=== PATIENT | female | born 1950 | race Caucasian/White ===

== ENCOUNTER → 2019-06-14 14:38 | Outpatient (ROUT) | payer MEDICARE, OTHER, SELFPAY ==
[2019-06-14 15:35] LABS: TSH w/ Reflex to FT4 2.68 uIU/mL (0.47-4.68)
[2019-06-14 18:27] LABS: BUN Creatinine Ratio 18.9 (6-22); Blood Urea Nitrogen 17 mg/dL (7-17); Calcium 9.9 mg/dL (8.4-10.2); Carbon Dioxide 29 mmol/L (22-32); Chloride 104 mmol/L (98-107); Cholesterol 283 mg/dL (140-199); Estimated Glomerular Filt Rate > 60.0 mL/min (>60); Glucose 104 mg/dL (80-110); HDL Cholesterol 65 mg/dL (40-60); HEMOLYSIS < 15 (0-50); LDL Cholesterol Calculated 197 mg/dL (<100); Potassium 4.3 mmol/L (3.4-5.1); Sodium 141 mmol/L (137-145); Triglycerides 105 mg/dL (35-150)
== END ==
PROVIDERS: Visit Provider Internal Medicine
DX: R73.01 Impaired fasting glucose (principal); E78.5 Hyperlipidemia, unspecified; E03.9 Hypothyroidism, unspecified
CPT/HCPCS: 80048; 80061; 84443

== ENCOUNTER 2019-10-15 12:52 | Emergency (ER) | payer MEDICARE, OTHER, SELFPAY ==
[2019-10-15 13:04] VITALS: BP 166/71; PULSE 80; RESP 16; TEMP 36.3; O2SAT 96; BMI 54.6
[2019-10-15 14:52] VITALS: BP 127/68; PULSE 85; RESP 16; TEMP 36.8; O2SAT 99
--- NOTE | 2019-10-15 18:13 | ED_ITS ---
HPI - Extremity Injury (Lower) <CARMEN Renee - Last Filed: 10/15/19 18:20> General Chief Complaint: Extremity Injury, Lower Stated Complaint: Laceration On Top Of Right Foot Time Seen by Provider: 10/15/19 13:03 Source: patient Mode of arrival: Ambulatory Limitations: no limitations History of Present Illness HPI Narrative: The patient is a 69-year-old female nonsmoker history of obesity and hypothyroid who presents with a chief complaint of a laceration on top of her right foot. She states that her tetanus is up-to-date, given in 2018. She x-ray lightheaded it on a piece of glass that was stuck on the bottom of her other foot. She states she has full range of motion. She states that she wanted to ?butterfly it at home.However she did not have enough supplies in her medical kit. Related Data Home Medications Medication Instructions Recorded Confirmed baclofen 20 mg tablet 20 mg PO BID 06/28/18 12/27/18 celecoxib 200 mg capsule 200 mg PO DAILY PRN 06/28/18 12/27/18 cyclosporine 0.05 % eye drops in a EYE-BOTH BID each 06/28/18 12/27/18 dropperette duloxetine 60 mg capsule,delayed 60 mg PO DAILY 06/28/18 12/27/18 release gabapentin 100 mg capsule 100 mg PO DAILY cap 06/28/18 12/27/18 levothyroxine 50 mcg tablet 50 mcg PO DAILY 06/28/18 12/27/18 omega-3 fatty acids 1,000 mg 1,000 mg PO BID cap 06/28/18 12/27/18 capsule omeprazole 20 mg capsule,delayed 20 mg PO DAILY 06/28/18 12/27/18 release Resmed Airsense 10 CPAP #1 ea 12/27/18 12/27/18 Allergies Allergy/AdvReac Type Severity Reaction Status Date / Time adhesive tape Allergy Blisters Verified 12/27/18 08:55 and Rash nickel Allergy Rash Verified 12/27/18 08:55 mercury (elemental) AdvReac Eye Redness Verified 12/27/18 08:55 Review of Systems <ACRMEN Renee - Last Filed: 10/15/19 18:20> Review of Systems Narrative: GENERAL: Denies chills, fatigue, malaise, fever, sweats. HEENT: Denies sinus pain, ear pain, sore throat, difficulty swallowing, dizziness. RESPIRATORY: Denies dyspnea, cough, wheezing, hemoptysis, sputum. CARDIOVASCULAR: Denies chest pain, palpitations, orthopnea, edema, GASTROINTESTINAL: Denies nausea, vomiting, abdominal pain, diarrhea, constipation, melena. : Denies dysuria, frequency, incontinence, hematuria, urinary retention. MUSCULOSKELETAL: denies weakness, joint pain, or bony pain SKIN: See HPI NEUROLOGIC: Denies weakness, headache, numbness, change in speech, confusion, seizures, incoordination. PSYCHIATRIC: No concerning psychosocial issues. 12 point review of systems is negative except for those stated above Patient History <CARMEN Renee - Last Filed: 10/15/19 18:20> Medical History Chronic lower back pain (Chronic) Dry eye syndrome (Chronic) Hypothyroidism (Chronic) Neuropathy (Chronic) Obesity (BMI 30-39.9) (Chronic) Obstructive sleep apnea (Chronic) Tendonitis (Chronic) Trigeminal neuralgia (Chronic) Family History Sister Psoriatic arthritis Sister Tendonitis Social History Smoking Status: Never smoker Smoking Status: Never smoker alcohol intake frequency: 0-2 drinks per day Exam <CARMEN Renee - Last Filed: 10/15/19 18:20> Narrative Exam Narrative: GENERAL: This is a well-nourished, well-developed patient, in no acute distress HEAD: Atraumatic. Normocephalic. No temporal or scalp tenderness. EYES: Pupils equal round and reactive. Extraocular motions intact. No scleral icterus. No injection or drainage. ENT: Nose without bleeding, purulent drainage or septal hematoma. Airway patent. NECK: Trachea midline. No JVD or lymphadenopathy. Supple, nontender, no meni ngeal signs. CARDIOVASCULAR: Regular rate and rhythm RESPIRATORY: No cough. No increased respiratory effort. No accessory muscle EXTREMITIES: Skin exam as noted. Positive pedal pulses right foot. Capillary refill less than 2 seconds all toes right foot BACK: Nontender without deformity or crepitance. No flank tenderness. NEURO: AOx3. SKIN: 1 cm flap laceration noted on top of right foot over navicular. Through dermis, no obvious muscle or tendon involvement. Slowly Oozing blood. Initial Vital Signs Initial Vital Signs: Vital Signs Temperature 97.3 F L 10/15/19 13:04 Pulse Rate 80 10/15/19 13:04 Respiratory Rate 16 10/15/19 13:04 Blood Pressure 166/71 H 10/15/19 13:04 Pulse Oximetry 96 10/15/19 13:04 <Jose Cruz Leos MD - Last Filed: 10/16/19 19:45> Initial Vital Signs Initial Vital Signs: Vital Signs Temperature 97.3 F L 10/15/19 13:04 Pulse Rate 80 10/15/19 13:04 Respiratory Rate 16 10/15/19 13:04 Blood Pressure 166/71 H 10/15/19 13:04 Pulse Oximetry 96 10/15/19 13:04 Procedures <CARMEN Renee - Last Filed: 10/15/19 18:20> Laceration Repair Laceration 1: Site: lower extremity Side (If applicable): right Size (cm): 1.5 Description: flap Pre-repair: wound explored, irrigated extensively (Soaked in Hibiclens and water) and deep structures intact Skin layer closed with: steri-strips Course <CARMEN Renee - Last Filed: 10/15/19 18:20> Vital Signs Vital signs: Vital Signs - 8 hr 10/15/19 13:04 10/15/19 14:52 Temperature 97.3 F L 98.2 F Pulse Rate 80 85 Respiratory Rate 16 16 Blood Pressure 166/71 H 127/68 Pulse Oximetry 96 99 <Jose Cruz Leos MD - Last Filed: 10/16/19 19:45> Vital Signs Vital signs: Vital Signs - 8 hr 10/15/19 13:04 10/15/19 14:52 Temperature 97.3 F L 98.2 F Pulse Rate 80 85 Respiratory Rate 16 16 Blood Pressure 166/71 H 127/68 Pulse Oximetry 96 99 MDM - Extremity Injury (Lower) <CARMEN Renee - Last Filed: 10/15/19 18:20> MDM Narrative Medical decision making narrative: The patient is a 69-year-old female who presents with a chief complaint of a laceration. Her tetanus is up-to-date. Patient declines x-ray. Her wound was closed as per procedural note tolerated well. She was re-evaluated after Steri-Strips for bleeding, and she was hemodynamically stable. I did discuss at length with the patient that seizures with lead 20 improved cosmetic closure over Steri-Strips, but she elected to do Steri-Strips instead. I discussed at length monitoring for signs and symptoms of infection. Patient has no questions or concerns upon discharge and states understanding of return precautions as well as follow-up care. Discharge Plan Departure Patient Disposition: Home Clinical Impression: Laceration Discharge Date/Time: 10/15/19 14:53 Instructions: DI for Laceration Repair Steri-Strips Activity Restrictions/Additional Instructions: Thank you for trusting us with your care today Please monitor your wound for signs and symptoms of infection including extending redness, purulent drainage etcetera Please follow-up with primary care provider in the next few days. Please come back to emergency department for any acute Prescriptions: No Action celecoxib [Celebrex] 200 mg capsule 200 mg PO DAILY PRNRF: 0 omega-3 fatty acids [Fish Oil Concentrate] 1,000 mg capsule 1,000 mg PO BID RF: 0 baclofen 20 mg tablet 20 mg PO BID RF: 0 levothyroxine [Levoxyl] 50 mcg tablet 50 mcg PO DAILY RF: 0 omeprazole 20 mg capsule,delayed release(DR/EC) 20 mg PO DAILY RF: 0 gabapentin 100 mg capsule 100 mg PO DAILY RF: 0 Restasis 0.05 % dropperette EYE-BOTH BID RF: 0 duloxetine 60 mg capsule,delayed release(DR/EC) 60 mg PO DAILY RF: 0 (DME) Resmed Airsense 10 CPAP Qty: 1 RF: 0 Referrals: Dorothy Harvey MD [Primary Care Provider] -
== END 2019-10-15 14:53 | disposition home or self-care (01) ==
PROVIDERS: Emergency Provider Nurse Practitioner Family; PCP Internal Medicine
DX: S91.311A Laceration without foreign body, right foot, initial encounter (principal); W25.XXXA Contact with sharp glass, initial encounter; E66.9 Obesity, unspecified; E03.9 Hypothyroidism, unspecified
CPT/HCPCS: 99281

== ENCOUNTER → 2020-04-19 15:20 | Outpatient (CLI) | payer MEDICARE, OTHER, SELFPAY ==
[2020-04-19 16:17] LABS: Add Manual Diff / Slide Review NO; Basophils Absolute Auto 0 /uL (0-100); Basophils Percent Auto 0.6 % (0-2); Eosinophils Absolute Auto 100 /uL (0-450); Hematocrit 37.3 % (36-46); Hemoglobin 12.6 g/dL (12.0-16.0); Lymphocytes Absolute Auto 2100 /uL (1100-4500); Lymphocytes Percent Auto 28.5 % (25-40); Mean Corpuscular HGB Conc 33.8 % (30-36); Mean Corpuscular Hemoglobin 31.3 PG (26-34); Mean Corpuscular Volume 92.8 fL (80-100); Monocytes Absolute Auto 500 /uL (0-900); Monocytes Percent Auto 6.5 % (3-14); Neutrophils Absolute Auto 4500 /uL (1500-7000); Neutrophils Percent Auto 62.4 % (50-75); Platelet Count 276 X10^3/uL (150-400); Red Blood Cell Count 4.02 X10^6/uL (4.0-5.2); Red Cell Distribution Width 14.2 % (11.6-14.8); White Blood Cell Count 7.2 X10^3/uL (4.5-11.0)
[2020-04-19 16:39] LABS: Alanine Aminotransferase 41 IU/L (<35); Albumin 4.2 g/dL (3.5-5.0); Albumin Globulin Ratio 1.4 (1.0-2.8); Alkaline Phosphatase 101 U/L (38-126); Aspartate Aminotransferase 49 IU/L (14-36); BUN Creatinine Ratio 20.9 (6-22); Bilirubin Total 0.6 mg/dL (0.2-1.3); Blood Urea Nitrogen 19 mg/dL (7-17); Calcium 9.5 mg/dL (8.4-10.2); Carbon Dioxide 30 mmol/L (22-32); Chloride 104 mmol/L (98-107); Cholesterol 263 mg/dL (140-199); Estimated Glomerular Filt Rate > 60.0 mL/min (>60); Globulin 3.1 g/dL (1.7-4.1); Glucose 98 mg/dL (80-110); HDL Cholesterol 71 mg/dL (40-60); HEMOLYSIS < 15 (0-50); LDL Cholesterol Calculated 177 mg/dL (<100); Sodium 137 mmol/L (137-145); Total Protein 7.3 g/dL (6.3-8.2); Triglycerides 74 mg/dL (35-150)
[2020-04-19 16:49] LABS: Hemoglobin A1C% w Est Avg Glu 5.4 % (4.0-6.0)
[2020-04-19 16:53] LABS: Free T3, Triiodothyronine Free 3.58 pg/mL (2.77-5.27); Free T4, Direct Thyroxine 1.38 ng/dL (0.78-2.19)
[2020-04-19 17:07] LABS: Thyroid Stimulating Hormone 0.968 uIU/mL (0.47-4.68)
[2020-04-19 17:28] LABS: Vitamin B12 751 pg/mL (239-931)
== END ==
PROVIDERS: PCP Family Medicine; Referring Provider Family Medicine; Visit Provider Family Medicine
DX: E03.9 Hypothyroidism, unspecified (principal); G62.89 Other specified polyneuropathies; E78.5 Hyperlipidemia, unspecified
CPT/HCPCS: 36415; 80053; 80061; 82607; 83036; 84439; 84443; 84481; 85025

== ENCOUNTER → 2020-11-22 10:30 | Outpatient (CLI) | payer MEDICARE, OTHER, SELFPAY ==
--- NOTE | 2020-11-22 10:32 | DI.RAD.S_ITS ---
PROCEDURE: XR HIP W PEL IF DONE RT 2V INDICATIONS: right hip pain after fall TECHNIQUE: AP pelvis with lateral view(s) of the right hip(s). COMPARISON: None. FINDINGS: Bones: No fractures or dislocations. Pelvic ring appears intact. No suspicious bony lesions. Soft tissues: The visualized bowel gas pattern is normal. No suspicious soft tissue calcifications. IMPRESSION: No fracture. No osseous lesion. If symptoms and/or clinical suspicion for pathology persists, further assessment with repeat radiographs (7-10 days) or advanced imaging (e.g. CT, MRI or bone scan) should be considered. Dictated by: Silvia Tate MD, PhD on 11/22/2020 at 16:59 Approved by: Silvia Tate MD, PhD on 11/22/2020 at 17:00
== END ==
PROVIDERS: PCP Family Medicine; Referring Provider Family Medicine; Visit Provider Family Medicine
DX: M25.551 Pain in right hip (principal)
CPT/HCPCS: 73502

== ENCOUNTER → 2021-06-17 08:22 | Outpatient (CLI) | payer MEDICARE, OTHER, SELFPAY ==
[2021-06-17 10:51] LABS: Add Manual Diff / Slide Review NO; Basophils Absolute Auto 100 /uL (0-100); Basophils Percent Auto 0.7 % (0-2); Eosinophils Absolute Auto 200 /uL (0-450); Eosinophils Percent Auto 2.8 % (2-4); Hematocrit 38.6 % (36-46); Lymphocytes Absolute Auto 2900 /uL (1100-4500); Lymphocytes Percent Auto 37.9 % (25-40); Mean Corpuscular HGB Conc 33.6 % (30-36); Mean Corpuscular Hemoglobin 30.9 PG (26-34); Mean Corpuscular Volume 91.9 fL (80-100); Monocytes Absolute Auto 500 /uL (0-900); Monocytes Percent Auto 6.5 % (3-14); Neutrophils Absolute Auto 4000 /uL (1500-7000); Neutrophils Percent Auto 52.1 % (50-75); Platelet Count 311 X10^3/uL (150-400); Red Cell Distribution Width 14.2 % (11.6-14.8); White Blood Cell Count 7.6 X10^3/uL (4.5-11.0)
[2021-06-17 11:04] LABS: Alanine Aminotransferase 30 IU/L (<35); Albumin 4.2 g/dL (3.5-5.0); Albumin Globulin Ratio 1.2 (1.0-2.8); Alkaline Phosphatase 87 U/L (38-126); Aspartate Aminotransferase 40 IU/L (14-36); BUN Creatinine Ratio 18.7 (6-22); Bilirubin Total 0.6 mg/dL (0.2-1.3); Blood Urea Nitrogen 17 mg/dL (7-17); Calcium 9.5 mg/dL (8.4-10.2); Carbon Dioxide 30 mmol/L (22-32); Chloride 108 mmol/L (98-107); Cholesterol 264 mg/dL (140-199); Estimated Glomerular Filt Rate > 60.0 mL/min (>60); Globulin 3.4 g/dL (1.7-4.1); Glucose 100 mg/dL (80-110); HDL Cholesterol 67 mg/dL (40-60); HEMOLYSIS < 15 (0-50); LDL Cholesterol Calculated 181 mg/dL (<100); Potassium 3.6 mmol/L (3.4-5.1); Sodium 141 mmol/L (137-145); Total Protein 7.6 g/dL (6.3-8.2); Triglycerides 81 mg/dL (35-150)
[2021-06-17 11:42] LABS: Free T3, Triiodothyronine Free 3.35 pg/mL (2.77-5.27); Free T4, Direct Thyroxine 1.46 ng/dL (0.78-2.19)
[2021-06-17 11:55] LABS: Thyroid Stimulating Hormone 2.17 uIU/mL (0.47-4.68)
== END ==
PROVIDERS: PCP Family Medicine; Referring Provider Family Medicine; Visit Provider Family Medicine
DX: E03.9 Hypothyroidism, unspecified (principal); E78.5 Hyperlipidemia, unspecified
CPT/HCPCS: 36415; 80053; 80061; 84439; 84443; 84481; 85025

== ENCOUNTER 2021-11-07 20:39 | Emergency (ER) | payer MEDICARE, OTHER, SELFPAY ==
[2021-11-07 20:57] VITALS: BP 133/60; PULSE 156; RESP 18; TEMP 37; O2SAT 96; BMI 42.4
--- NOTE | 2021-11-07 20:57 | DI.RAD.S_ITS ---
PROCEDURE: XR CHEST 1V INDICATIONS: chest pain TECHNIQUE: One view of the chest was acquired. COMPARISON: None. FINDINGS: Surgical changes and devices: None. Lungs and pleura: Lungs are clear. No pleural effusions or pneumothorax. Mediastinum: Mediastinal contours appear normal. Heart size is normal. Bones and chest wall: No suspicious bony lesions. Overlying soft tissues appear unremarkable. IMPRESSION: No acute cardiopulmonary process demonstrated radiographically. Dictated by: Harlan Lara M.D. on 11/07/2021 at 21:17 Approved by: Harlan Lara M.D. on 11/07/2021 at 21:17
--- NOTE | 2021-11-07 21:10 | PC.NURSE ---
pt was sitting on couch when she started feeling palpitations realized she was in Afib after checking her pulse and came to the ED. pt was placed on a stretcher in [place] and an ekg done, then she was moved to a room and placed on the monitor by which time she had converted to SR
--- NOTE | 2021-11-07 21:32 | ED.ARRPALP ---
HPI - Arrhythmia/Palpitations General Chief Complaint: Arrhythmia/Palpitations Stated Complaint: IRREGULAR HEART RATE. SHORT OF BREATH Time Seen by Provider: 11/07/21 21:12 Mode of arrival: Family Vehicle History of Present Illness HPI narrative: 71-year-old female nonsmoker without significant medical history presents with a chief complaint of a sudden onset rapid and irregular heart rate that started at 8:00 p.m. tonight. It is given her the sensation of palpitations and shortness of breath but she denies any chest pain, dizziness or lightheadedness. She is a former ER nurse, she states that she is never had AFib in the past. She denies any recent medication or dietary change. She is had no runny nose, sore throat or cough. She denies any fever or chills. She denies abdominal pain, diarrhea or constipation and has no dysuria, frequency or urgency. Related Data Home Medications Medication Instructions Recorded Confirmed Resmed Airsense 10 CPAP #1 ea 12/27/18 06/27/21 Devil's claw PO PRN 04/19/20 06/27/21 black elderberry PO BID 04/19/20 06/27/21 calcium carbonate 600 mg-vitamin cap PO . BID 04/19/20 06/27/21 D3 12.5 mcg (500 unit) capsule (Calcium 600 with Vitamin D3) cetirizine 10 mg capsule (Zyrtec) mg PO PRN 04/19/20 06/27/21 cholecalciferol (vitamin D3) 50 50 mcg PO BID 04/19/20 06/27/21 mcg (2,000 unit) capsule multivitamin with minerals 1 tab PO DAILY 04/19/20 06/27/21 (Hair,Skin and Nails tablet) fmarqykubole-Xj-gnjx-minerals 27 tab PO 04/19/20 06/27/21 mg-0.4 mg tablet (One Daily Women's) Previous Rx's Medication Instructions Recorded omeprazole 20 mg capsule,delayed See Rx Instructions .Route 09/02/20 release .COMPLEX #90 caps celecoxib 200 mg capsule See Rx Instructions .Route 04/25/21 .COMPLEX #90 caps duloxetine 60 mg capsule,delayed See Rx Instructions .Route 05/05/21 release .COMPLEX #90 caps oxcarbazepine 300 mg tablet See Rx Instructions PO BID #90 tabs 07/03/21 baclofen 20 mg tablet See Rx Instructions .Route 07/09/21 .COMPLEX #180 tabs levothyroxine 50 mcg tablet See Rx Instructions .Route 07/09/21 .COMPLEX #90 tabs cyclosporine 0.05 % eye drops in a 1 drp EYE-BOTH BID #180 ea 07/11/21 dropperette (Restasis) gabapentin 300 mg capsule 300 mg PO TID #360 caps 07/15/21 Allergies Allergy/AdvReac Type Severity Reaction Status Date / Time adhesive tape Allergy Blisters Verified 11/07/21 21:00 and Rash nickel Allergy Rash Verified 11/07/21 21:00 mercury (elemental) AdvReac Eye Redness Verified 11/07/21 21:00 Review of Systems Review of Systems Narrative: GENERAL: Denies chills, fatigue, malaise, fever, sweats. HEENT: Denies sinus pain, ear pain, sore throat, difficulty swallowing, dizziness. RESPIRATORY: Denies dyspnea, cough, wheezing, hemoptysis, sputum. CARDIOVASCULAR: Denies chest pain, palpitations, orthopnea, edema, GASTROINTESTINAL: Denies nausea, vomiting, abdominal pain, diarrhea, constipation, melena. : Denies dysuria, frequency, incontinence, hematuria, urinary retention. MUSCULOSKELETAL: denies weakness, joint pain, or bony pain SKIN: Denies rash, skin lesions, or other NEUROLOGIC: Denies weakness, headache, numbness, change in speech, confusion, seizures, incoordination. PSYCHIATRIC: No concerning psychosocial issues. 12 point review of systems is negative except for those stated above Patient History Medical History Ataxia Breast cancer Chicken pox Chronic lower back pain Colon polyps Dry eye syndrome Excessive cerumen in both ear canals Fatigue Fibromyalgia High altitude cerebral edema History of breast cancer Hyperlipidemia Hypothyroidism Keratotic papilloma Left hemiparesis Measles Morbid obesity with body mass index (BMI) of 40.0 to 49.9 [place] Obesity (BMI 30-39.9) Obstructive sleep apnea Osteoarthritis Peptic ulcer disease Peripheral neuropathy Right hip pain Rubella Seasonal affective disorder Sjogrens syndrome Skin cancer Tendonitis Trigeminal neuralgia Surgical History Anesthesia History of arthroscopy History of bilateral mastectomy History of cataract removal with insertion of prosthetic lens History of dilatation and curettage History of eye surgery History of knee surgery History of shoulder surgery History of tonsillectomy and adenoidectomy History of total abdominal hysterectomy Status post left partial knee replacement Family History Sister Psoriatic arthritis History of heart disease Sister Tendonitis Rheumatoid arthritis SLE (systemic lupus erythematosus) Sjogren's syndrome Sister Cancer Mental health problem Father Polymyositis Diabetes mellitus Hypertension Mental health problem Mother Hypertension Heart attack COPD (chronic obstructive pulmonary disease) Non-Hodgkin lymphoma History of heart disease Brother Hyperlipidemia Grandfather Stroke Grandmother History of heart disease Hypertension Grandfather Cancer Grandmother History of heart disease Social History Smoking Status: Never smoker second hand exposure: No alcohol intake: current substance use type: does not use Smoking Status: Never smoker alcohol intake frequency: 0-2 drinks per day Exam Initial Vital Signs Initial Vital Signs: Vital Signs Temperature 98.6 F 11/07/21 20:57 Pulse Rate 156 H 11/07/21 20:57 Respiratory Rate 18 11/07/21 20:57 Blood Pressure 133/60 11/07/21 20:57 Pulse Oximetry 96 11/07/21 20:57 Oxygen Delivery Method 11/07/21 20:57 Course Orders Ordered: ED Orders 11/07/21 20:57 XR chest 1V Stat 11/07/21 21:00 EKG-12 Lead Stat 11/07/21 21:15 Complete Blood Count AUTO DIFF Stat Comprehensive Metabolic Panel Stat Lipase Stat Magnesium Stat Troponin & CK Cardiac Panel Stat 11/07/21 21:23 EKG-12 Lead Routine Reevaluation(s) Reevaluation #1: During initial exam patient pulse started to feel slow and regular at which point an EKG was obtained and she had spontaneously converted to a normal sinus rhythm. She remains asymptomatic Consultations Consultation #1: Discussed with on-call Cardiology, Dr. Tipton ([facility]). We have discussed the case and agree that given her chads Vasc 2 score of 2 she is appropriately treated with aspirin alone. Given her baseline heart rate in the 60s and heart rate in the 120s we will not add any AV lurdes blocking agents. He requests that I send patient with her EKG which I have done, and refer her to the office. Vital Signs Vital signs: Vital Signs - 8 hr 11/07/21 20:57 Temperature 98.6 F Pulse Rate 156 H Respiratory Rate 18 Blood Pressure 133/60 Pulse Oximetry 96 Oxygen Delivery Method Room Air MDM - Arrhythmia/Palpitations Lab Data Result diagrams: 11/07/21 21:15 11/07/21 21:15 Labs: Lab Results 11/07/21 11/07/21 Range/Units 21:15 21:15 WBC 9.8 (4.5-11.0) X10^3/uL RBC 4.27 (4.0-5.2) X10^6/uL Hgb 13.2 (12.0-16.0) g/dL Hct 39.8 (36-46) % MCV 93.2 (80-100) fL MCH 30.9 (26-34) PG MCHC 33.2 (30-36) % RDW 14.4 (11.6-14.8) % Plt Count 295 (150-400) X10^3/uL Neut % (Auto) 59.0 (50-75) % Lymph % (Auto) 31.8 (25-40) % [place] % (Auto) 6.0 (3-14) % Eos % (Auto) 2.3 (2-4) % Baso % (Auto) 0.9 (0-2) % Neut # (Auto) 5800 (6087-9619) /uL Lymph # (Auto) 3100 (9148-5910) /uL [place] # (Auto) 600 (0-900) /uL Eos # (Auto) 200 (0-450) /uL Baso # (Auto) 100 (0-100) /uL Sodium 143 (137-145) mmol/L Potassium 3.2 L (3.4-5.1) mmol/L Chloride 106 (98-107) mmol/L Carbon Dioxide 25 (22-32) mmol/L BUN 15 (7-17) mg/dL Creatinine 0.81 (0.52-1.04) mg/dL Estimated GFR > 60 (>60) mL/min BUN/Creatinine Ratio 18.5 (6-22) Glucose 146 H (80-110) mg/dL Calcium 9.4 (8.4-10.2) mg/dL Magnesium 2.1 (1.6-2.3) mg/dL Total Bilirubin 0.4 (0.2-1.3) mg/dL AST 35 (14-36) IU/L ALT 23 (<35) IU/L Alkaline Phosphatase 67 (38-126) U/L Total Creatine Kinase 116 (30-135) U/L CK-MB (CK-2) 2.57 H (<2.37) ng/mL CK-MB (CK-2) Rel Index 2.2 (1.5-5.0) % Troponin I < 0.012 (0.01-0.034) ng/mL Total Protein 7.5 (6.3-8.2) g/dL Albumin 4.3 (3.5-5.0) g/dL Globulin 3.2 (1.7-4.1) g/dL Albumin/Globulin Ratio 1.3 (1.0-2.8) Lipase 68 (23-300) U/L Discharge Plan Departure Patient Disposition: Home Clinical Impression: Atrial fibrillation, new onset, Acute hypokalemia Instructions: DI for Atrial Fibrillation Activity Restrictions/Additional Instructions: *You have been diagnosed with [new onset atrial fibrillation with spontaneous cardioversion] *What to do: * as we discussed please start taking aspirin 81 mg daily *Please follow up with your primary care provider in 2-3 days, call for an appointment. Let them know you were seen in the Emergency Department and that we ask that you be seen in follow up. We will electronically transmit a record of today's note if your PCP is in our system * please contact Dr. Tipton at [facility]. Please call the office Wednesday and let them know you were seen in the emergency department and we would like you seen in follow-up *Return to Emergency Department if you should have any new, worsening or concerning symptoms, such as [fever greater than 101 F, shaking chills, worsening pain, persistent vomiting or other bothersome symptoms] Prescriptions: No Action omeprazole 20 mg capsule,delayed release(/EC) See Rx Instructions .ROUTE .COMPLEX Qty: 90 3RF Dose Instruction: TAKE 1 CAPSULE DAILY Rx Instructions: TAKE 1 CAPSULE DAILY celecoxib 200 mg capsule See Rx Instructions .ROUTE .COMPLEX Qty: 90 3RF Dose Instruction: TAKE 1 CAPSULE DAILY Rx Instructions: TAKE 1 CAPSULE DAILY duloxetine 60 mg capsule,delayed release(DR/EC) See Rx Instructions .ROUTE .COMPLEX Qty: 90 3RF Dose Instruction: TAKE 1 CAPSULE DAILY Rx Instructions: TAKE 1 CAPSULE DAILY oxcarbazepine 300 mg tablet See Rx Instructions PO BID Qty: 90 1RF Rx Instructions: Start with 1 tablet PO twice a day; Increase by 1 tablet every 3rd day up to 6 tablets daily. Decrease by 1 tablet every 3rd day after symptoms resolve. levothyroxine 50 mcg tablet See Rx Instructions .ROUTE .COMPLEX Qty: 90 1RF Dose Instruction: TAKE 1 TABLET DAILY Rx Instructions: TAKE 1 TABLET DAILY baclofen 20 mg tablet See Rx Instructions .ROUTE .COMPLEX Qty: 180 0RF Dose Instruction: TAKE 1 TABLET TWICE A DAY Rx Instructions: TAKE 1 TABLET TWICE A DAY Restasis 0.05 % dropperette 1 drp EYE-BOTH BID Qty: 180 3RF gabapentin 300 mg capsule 300 mg PO TID Qty: 360 2RF black elderberry PO BID Devil's claw PO PRN Label Comments: spasms or pain Zyrtec 10 mg capsule PO PRN cholecalciferol (vitamin D3) 50 mcg (2,000 unit) capsule 50 mcg PO BID One Daily Women's 27-0.4 mg tablet PO multivitamin with minerals [Hair,Skin and Nails] Tablet 1 tab PO DAILY calcium carbonate-vitamin D3 [Calcium 600 with Vitamin D3] 600 mg(1,500mg) -500 unit capsule PO . BID (DME) Resmed Airsense 10 CPAP Qty: 1 Label Comments: Pressure: 8 cmH2O DME: [facility] Rx Instructions: As directed Referrals: Horacio Tipton DO [Physician] - Paulino Salcido DO [Primary Care Provider] -
[2021-11-07 21:39] LABS: Add Manual Diff / Slide Review NO; Basophils Absolute Auto 100 /uL (0-100); Basophils Percent Auto 0.9 % (0-2); Eosinophils Absolute Auto 200 /uL (0-450); Eosinophils Percent Auto 2.3 % (2-4); Hematocrit 39.8 % (36-46); Hemoglobin 13.2 g/dL (12.0-16.0); Lymphocytes Absolute Auto 3100 /uL (1100-4500); Lymphocytes Percent Auto 31.8 % (25-40); Mean Corpuscular HGB Conc 33.2 % (30-36); Mean Corpuscular Hemoglobin 30.9 PG (26-34); Mean Corpuscular Volume 93.2 fL (80-100); Monocytes Absolute Auto 600 /uL (0-900); Neutrophils Absolute Auto 5800 /uL (1500-7000); Platelet Count 295 X10^3/uL (150-400); Red Blood Cell Count 4.27 X10^6/uL (4.0-5.2); Red Cell Distribution Width 14.4 % (11.6-14.8); White Blood Cell Count 9.8 X10^3/uL (4.5-11.0)
[2021-11-07 21:42] VITALS: PULSE 91; RESP 24; O2SAT 94
[2021-11-07 21:50] LABS: Alanine Aminotransferase 23 IU/L (<35); Albumin 4.3 g/dL (3.5-5.0); Albumin Globulin Ratio 1.3 (1.0-2.8); Alkaline Phosphatase 67 U/L (38-126); Aspartate Aminotransferase 35 IU/L (14-36); BUN Creatinine Ratio 18.5 (6-22); Bilirubin Total 0.4 mg/dL (0.2-1.3); Blood Urea Nitrogen 15 mg/dL (7-17); Calcium 9.4 mg/dL (8.4-10.2); Carbon Dioxide 25 mmol/L (22-32); Chloride 106 mmol/L (98-107); Creatine Kinase 116 U/L (30-135); Estimated Glomerular Filt Rate > 60 mL/min (>60); Globulin 3.2 g/dL (1.7-4.1); Glucose 146 mg/dL (80-110); HEMOLYSIS < 15 (0-50); Lipase 68 U/L (23-300); Magnesium 2.1 mg/dL (1.6-2.3); Potassium 3.2 mmol/L (3.4-5.1); Sodium 143 mmol/L (137-145); Total Protein 7.5 g/dL (6.3-8.2)
[2021-11-07 22:00] VITALS: BP 144/62; PULSE 86; RESP 27; O2SAT 93
[2021-11-07 22:00] LABS: Troponin I < 0.012 ng/mL (0.01-0.034)
[2021-11-07 22:04] LABS: CKMB % Relative Index 2.2 % (1.5-5.0); Creatine Kinase MB 2.57 ng/mL (<2.37)
[2021-11-07 22:30] VITALS: BP 128/61; PULSE 86; RESP 38; O2SAT 93
== END 2021-11-07 22:42 | disposition home or self-care (01) ==
PROVIDERS: Emergency Provider Emergency Medicine; PCP Family Medicine
DX: I48.91 Unspecified atrial fibrillation (principal); E87.6 Hypokalemia; R07.9 Chest pain, unspecified
CPT/HCPCS: 36415; 71045; 80053; 82550; 82553; 83690; 83735; 84484; 85025; 93005; 99284

== ENCOUNTER → 2021-11-19 09:41 | Outpatient (CLI) | payer MEDICARE, OTHER, SELFPAY ==
--- NOTE | 2021-12-03 07:27 | P.HOLT.S_ITS ---
Medical Coordinator Pesticide Use Report Referral & Results Date Patient Seen: 11/19/21 Requesting provider: Paulino Salcido Indication: Atrial fibrillation Duration of monitoring (days): 7 Diary information: There were 0 patient events to review Data: Minimum heart rate identified was 50 beats per minute at 09:34 on 11/22/2021 Maximum sinus heart rate was 135 beats per minute at 19:00 on 11/21/2021 Maximum overall heart rate was 174 beats per minute at 01:21 on 11/20/2021 during a run of SVT Less than 1% of identified beats were ventricular or supraventricular ectopic in origin, which would classify them as rare. There were 3 runs of SVT with the fastest being an 8 beat run as noted above, this was also the longest run There were no episodes of atrial fibrillation or pauses of 3 seconds or longer identified on this study Impression: 6+ day personnel monitor demonstrating very rare very brief runs of SVT otherwise unremarkable. No atrial fibrillation identified on this study Clinical correlation suggested
== END ==
PROVIDERS: PCP Family Medicine; Referring Provider Family Medicine; Visit Provider Family Medicine
DX: I48.91 Unspecified atrial fibrillation (principal)
CPT/HCPCS: 93242; 93244

== ENCOUNTER → 2021-12-24 14:04 | Outpatient (CLI) | payer MEDICARE, OTHER, SELFPAY ==
[2021-12-24 15:07] LABS: Cholesterol 224 mg/dL (140-199); HDL Cholesterol 52 mg/dL (40-60); HEMOLYSIS < 15 (0-50); LDL Cholesterol Calculated 157 mg/dL (<100); Potassium 3.9 mmol/L (3.4-5.1); Triglycerides 75 mg/dL (35-150)
== END ==
PROVIDERS: PCP Family Medicine; Referring Provider Family Medicine; Visit Provider Family Medicine
DX: E78.5 Hyperlipidemia, unspecified (principal); E87.6 Hypokalemia
CPT/HCPCS: 36415; 80061; 84132

== ENCOUNTER → 2021-12-25 09:17 | Outpatient (CLI) | payer MEDICARE, OTHER, SELFPAY ==
--- NOTE | 2021-12-25 09:18 | DI.NM.S_ITS ---
PROCEDURE: NM JOSHUA PERF SPECT R&S PHARM Rest and pharmacological stress myocardial perfusion SPECT with gated imaging and ejection fraction RADIOPHARMACEUTICAL: 27.2 mCi Tc-99m tetrafosmin IV at rest and 26.9 regadenoson mCi Tc-99m tetrafosmin IV at peak effect of pharmacological stress. Zot-ydr-dldiycum was performed. INDICATIONS: Unspecified atrial fibrillation TECHNIQUE: Radiopharmaceutical was injected at peak stress test, and also at rest. SPECT images were obtained. SPECT myocardial perfusion images were displayed in short axis, horizontal long axis, and vertical long axis views. Gated images were reviewed using [employer] software. COMPARISON: None. CARDIAC STRESS: A pharmacologic stress test was performed under the supervision of an attending staff, using an infusion of regadenoson. Hemodynamic data: There is normal blood pressure and heart rate response to pharmacologic stress. Symptoms: The patient denied anginal chest pain. EKG: No diagnostic changes of ischemia; no ectopy. FINDINGS: Raw data: There is good myocardial uptake of radiotracer. No significant motion artifacts. Mgio-hp-uzfrw ratio is 0.31 (normal is less than 0.38 for tetrafosmin tracer). Left ventricle function: Gated images demonstrate normal left ventricular wall thickening. No segmental wall motion abnormalities. No transient ischemic dilation; TID is 0.89> (normal less than 1.3). Left ventricle resting end diastolic volume is 110 mL. Left ventricle stress ejection fraction is >75%; normal range is above 45%. Myocardial perfusion: There is normal distribution of activity in the right and left ventricular myocardium. No fixed or reversible perfusion defects. IMPRESSION: No evidence of pharmacologic induced ischemia or scar. Hyperdynamic left ventricular function with normal wall motion. Dictated by: Jayne Ayon D.O. on 12/26/2021 at 16:26 Approved by: Jayne Ayon D.O. on 12/26/2021 at 16:29
--- NOTE | 2021-12-25 09:18 | DI.ECHO.S_ITS ---
[facility] +---------+ : : [address] : : : : [id number] : : : : Phone: [phone]+ Echocardiogram Report + + :Name: AMANDA LAMBERT Study Date: 12/25/2021 Height: 65 in : :[facility] ReadingLocation: Weight: 250 lb : : Gender: Female BSA: 2.2 m2 : :: 1950 Age: 71 yrs BP: 130/81 mmHg: :Reason For Study: Atrial fibrillation : :Ordering Physician: VALENTINE, : :JOAQUIM Performed By: Silvino Murphy : :Referring: JOAQUIM GRIJALVA : + + Interpretation Summary The left ventricle is normal in size and wall thickness. Left ventricular systolic function is normal. The ejection fraction is estimated to be 55-60%. There are no focal wall motion abnormalities. Diastolic parameters suggest probable normal left ventricular diastolic function and normal filling pressures. The right ventricle is normal in size and function. The right ventricular systolic pressure is estimated to be at least 31 mmHg based on an estimated right atrial pressure of 3 mm Hg. Both atria are normal in size. There is no significant valvular heart disease. The aortic root is normal size. Procedure: A two-dimensional transthoracic echocardiogram with color flow and Doppler was performed. The study quality was technically adequate. There is no prior echocardiogram noted for this patient. The patient was in normal sinus rhythm during the exam. Left Ventricle: The left ventricle is normal in size and wall thickness. Left ventricular systolic function is normal. The ejection fraction is estimated to be 55-60%. There are no focal wall motion abnormalities. Diastolic parameters suggest probable normal left ventricular diastolic function and normal filling pressures. Right Ventricle: The right ventricle is normal in size and function. Atria: Both atria are normal in size. The interatrial septum grossly appears intact with no obvious evidence for an atrial septal defect. Mitral Valve: The mitral valve is normal in structure and function. There is trace mitral regurgitation. Aortic Valve: The aortic valve is normal in structure and function. No aortic regurgitation is present. Tricuspid Valve: The tricuspid valve is normal in structure and function. There is mild tricuspid regurgitation. The right ventricular systolic pressure is estimated to be at least 31 mmHg based on an estimated right atrial pressure of 3 mm Hg. Pulmonic Valve: The pulmonic valve is not well seen, but is grossly normal. There is no pulmonic valvular regurgitation. There is no significant valvular heart disease. Great Vessels: The aortic root is normal size. The dimensions of the ascending aorta are normal. The IVC is of normal diameter and collapses greater than 50% with a sniff. This suggests a low right atrial pressure of 3 mm Hg. Pericardium/ Pleura There is no pericardial effusion. There is no pleural effusion. MMode/2D Measurements & Calculations LVIDd: 5.0 cm LVOT diam: 2.1 cm LVIDs: 3.5 cm Ao root diam: 3.1 cm FS: 29.0 % asc Aorta Diam: 2.9 cm IVSd: 0.80 cm LVPWd: 0.80 cm LV darden. diameter/BSA (cm/m^2): 2.3 LV sys. diameter/BSA (cm/m^2): 1.6 LA dimension: 3.0 cm RA long axis: 5.0 cm LA A2 area: 19.8 cm2 LA A4 area: 19.8 cm2 LA length (vol): 5.9 cm LA vol: 56.5 ml LA vol index: 26.0 ml/m2 TAPSE_phl: 2.2 cm Doppler Measurements & Calculations Ao V2 max: 136.0 cm/sec LVOT Max Jose: 128.0 cm/sec Ao V2 mean: 102.0 cm/sec LV V1 max P.6 mmHg Ao max P.0 mmHg LV V1 VTI: 30.9 cm Ao mean P.0 mmHg MAURI(I,D): 3.5 cm2 Ao V2 VTI: 30.5 cm MAURI(V,D): 3.3 cm2 sev ratio: 1.0 MAURI indexed to BSA (cm^2/m^2): 1.6 MV E max jose: 95.5 cm/sec TR max jose: 262.0 cm/sec MV A max jose: 80.1 cm/sec TR max P.5 mmHg MV E/A: 1.2 Med Peak E' Jose: 10.9 cm/sec E/E' med: 8.8 Lat Peak E' Jose: 12.5 cm/sec E/E' lat: 7.6 E/e' average: 8.2 MV dec time: 0.28 sec SV(LVOT): 107.0 ml AV VR_phl: 0.94 MAURI(VTI)/BSA_phl: 1.6 MV P1/2t-pr_phl: 80.0 msec Reading Physician:11:09 AM
[2021-12-25 10:01] LABS: COVID19 -Nasal RAPID Negative (Negative)
== END ==
PROVIDERS: PCP Family Medicine; Referring Provider Internal Medicine Cardiovascular Disease; Visit Provider Internal Medicine Cardiovascular Disease
DX: I48.91 Unspecified atrial fibrillation (principal); Z20.822 Contact with and (suspected) exposure to COVID-19
CPT/HCPCS: 78452; 87635; 93017; 93306; A9502; J2785

== ENCOUNTER → 2022-05-12 08:51 | Outpatient (CLI) | payer MEDICARE, OTHER, SELFPAY ==
[2022-05-12 09:36] LABS: Add Manual Diff / Slide Review NO; Basophils Absolute Auto 100 /uL (0-100); Basophils Percent Auto 0.8 % (0-2); Eosinophils Absolute Auto 200 /uL (0-450); Eosinophils Percent Auto 3.1 % (2-4); Hematocrit 38.8 % (36-46); Hemoglobin 13.1 g/dL (12.0-16.0); Lymphocytes Absolute Auto 2700 /uL (1100-4500); Lymphocytes Percent Auto 38.6 % (25-40); Mean Corpuscular HGB Conc 33.7 % (30-36); Mean Corpuscular Hemoglobin 30.6 PG (26-34); Mean Corpuscular Volume 90.8 fL (80-100); Monocytes Absolute Auto 600 /uL (0-900); Monocytes Percent Auto 8.5 % (3-14); Neutrophils Absolute Auto 3400 /uL (1500-7000); Platelet Count 295 X10^3/uL (150-400); Red Blood Cell Count 4.27 X10^6/uL (4.0-5.2); Red Cell Distribution Width 15.7 % (11.6-14.8)
[2022-05-12 09:40] LABS: Hemoglobin A1C% w Est Avg Glu 5.3 % (4.0-6.0)
[2022-05-12 09:43] LABS: Alanine Aminotransferase 25 IU/L (<35); Albumin 4.3 g/dL (3.5-5.0); Albumin Globulin Ratio 1.3 (1.0-2.8); Alkaline Phosphatase 74 U/L (38-126); Aspartate Aminotransferase 30 IU/L (14-36); BUN Creatinine Ratio 13.4 (6-22); Bilirubin Total 0.5 mg/dL (0.2-1.3); Bilirubin Unconjugated 0.3 mg/dL (0.0-1.1); Blood Urea Nitrogen 13 mg/dL (7-17); Calcium 9.9 mg/dL (8.4-10.2); Carbon Dioxide 28 mmol/L (22-32); Chloride 100 mmol/L (98-107); Estimated Glomerular Filt Rate > 60 mL/min (>60); Globulin 3.3 g/dL (1.7-4.1); Glucose 109 mg/dL (80-110); HEMOLYSIS < 15 (0-50); Potassium 3.8 mmol/L (3.4-5.1); Sodium 139 mmol/L (137-145); Total Protein 7.6 g/dL (6.3-8.2)
[2022-05-12 09:55] LABS: Iron 62 ug/dL (37-170)
[2022-05-12 10:09] LABS: Percent Iron Saturation 16 % (15-50); Total Iron Binding Capacity 398 ug/dL (265-497)
[2022-05-12 10:12] LABS: Free T4, Direct Thyroxine 1.45 ng/dL (0.78-2.19)
[2022-05-12 10:26] LABS: Thyroid Stimulating Hormone 1.78 uIU/mL (0.47-4.68)
[2022-05-14 15:15] LABS: Albumin 3.5 g/dL (2.9-4.4); Alpha-1-Globulin 0.2 g/dL (0.0-0.4); Alpha-2-Globulin 0.8 g/dL (0.4-1.0); Globulin Total 3.1 g/dL (2.2-3.9); Protein, Total 6.6 g/dL (6.0-8.5)
[2022-05-16 20:03] LABS: ANA Screen, IFA Negative (.)
== END ==
PROVIDERS: PCP Family Medicine; Referring Provider Dermatology; Visit Provider Dermatology
DX: L29.8 Other pruritus (principal); Z79.899 Other long term (current) drug therapy; T88.7XXA Unspecified adverse effect of drug or medicament, initial encounter
CPT/HCPCS: 36415; 80053; 80076; 83036; 83540; 83550; 84155; 84165; 84439; 84443; 85025; 86038

== ENCOUNTER → 2023-01-07 09:40 | Outpatient (CLI) | payer MEDICARE, OTHER, SELFPAY ==
[2023-01-07 11:20] LABS: Alanine Aminotransferase 23 IU/L (<35); Albumin 4.2 g/dL (3.5-5.0); Albumin Globulin Ratio 1.5 (1.0-2.8); Alkaline Phosphatase 79 U/L (38-126); Aspartate Aminotransferase 31 IU/L (14-36); BUN Creatinine Ratio 18.8 (6-22); Bilirubin Total 0.3 mg/dL (0.2-1.3); Blood Urea Nitrogen 16 mg/dL (7-17); Calcium 9.7 mg/dL (8.4-10.2); Carbon Dioxide 27 mmol/L (22-32); Chloride 104 mmol/L (98-107); Cholesterol 255 mg/dL (140-199); Estimated Glomerular Filt Rate > 60 mL/min (>60); Globulin 2.8 g/dL (1.7-4.1); Glucose 100 mg/dL (80-110); HDL Cholesterol 67 mg/dL (40-60); HEMOLYSIS < 15 (0-50); LDL Cholesterol Calculated 157 mg/dL (<100); Sodium 140 mmol/L (137-145); Triglycerides 153 mg/dL (35-150)
[2023-01-07 11:49] LABS: TSH w/ Reflex to FT4 3.08 uIU/mL (0.47-4.68)
== END ==
PROVIDERS: PCP Family Medicine; Referring Provider Family Medicine; Visit Provider Family Medicine
DX: E03.9 Hypothyroidism, unspecified (principal); E66.01 Morbid (severe) obesity due to excess calories; E78.5 Hyperlipidemia, unspecified; E87.6 Hypokalemia
CPT/HCPCS: 36415; 80053; 80061; 84443

== ENCOUNTER → 2023-04-15 08:42 | Outpatient (CLI) | payer MEDICARE, OTHER, SELFPAY ==
[2023-04-15 10:22] LABS: Alanine Aminotransferase 26 IU/L (<35); Albumin 3.8 g/dL (3.5-5.0); Albumin Globulin Ratio 1.3 (1.0-2.8); Alkaline Phosphatase 83 U/L (38-126); BUN Creatinine Ratio 15.7 (6-22); Bilirubin Total 0.7 mg/dL (0.2-1.3); Blood Urea Nitrogen 14 mg/dL (7-17); Calcium 9.8 mg/dL (8.4-10.2); Carbon Dioxide 30 mmol/L (22-32); Chloride 104 mmol/L (98-107); Cholesterol 201 mg/dL (140-199); Estimated Glomerular Filt Rate > 60 mL/min (>60); Globulin 2.9 g/dL (1.7-4.1); Glucose 105 mg/dL (80-110); HDL Cholesterol 72 mg/dL (40-60); HEMOLYSIS < 15 (0-50); LDL Cholesterol Calculated 114 mg/dL (<100); Potassium 4.6 mmol/L (3.4-5.1); Sodium 140 mmol/L (137-145); Total Protein 6.7 g/dL (6.3-8.2); Triglycerides 77 mg/dL (35-150)
[2023-04-16 15:11] LABS: Aspartate Aminotransferase 43 IU/L (14-36)
== END ==
PROVIDERS: PCP Family Medicine; Referring Provider Family Medicine; Visit Provider Family Medicine
DX: E78.5 Hyperlipidemia, unspecified (principal)
CPT/HCPCS: 36415; 80053; 80061

== ENCOUNTER → 2023-05-27 16:45 | Outpatient (CLI) | payer MEDICARE, OTHER, SELFPAY ==
--- NOTE | 2023-05-27 16:47 | DI.MRI.S_ITS ---
PROCEDURE: MR LUMBAR SPINE WO CON INDICATIONS: Lumbar radiculopathy urinary incontinence TECHNIQUE: Noncontrast sagittal T1 spin echo and T2 fast echo, sagittal STIR, and T2 fast spin echo through the lumbar spine. In cases with scoliosis, additional coronal T2 fast spin echo may be performed. COMPARISON: [facility], CR, XR LUMBAR SPINE WITH OBLIQUES, 11/19/2017, 10:27. FINDINGS: Image quality: Excellent. Alignment and Curvature: There is moderate levoconvex lumbar scoliosis. No focal AP alignment abnormality is seen. Bone Marrow: Marrow is of normal overall signal. No acute vertebral body compression fractures. Spinal Cord: Conus medullaris terminates at the L1 level. Visualized cord demonstrates normal signal and size. Paraspinous Soft Tissues: No paravertebral masses. T12-L1: Normal appearance. L1-L2: At least moderate loss of disc height and disc signal can be seen. Reactive marrow endplate changes are seen, which demonstrate mixed T1 weighted and T2-weighted signal, and are attributed to a combination of edema and fatty metaplasia (Modic type I and Modic type II changes). Moderate generalized disc bulge is seen. There is a superimposed central disc protrusion. Mild facet joint hypertrophy is seen. There is at least moderate right-sided and moderate left-sided neural foraminal narrowing. Moderate central canal narrowing is seen. L2-L3: Moderate loss of disc height is seen. Loss of disc signal is seen. Mild to moderate disc bulge is seen, which is eccentric to the right. There is a superimposed central disc protrusion. Mild to moderate facet hypertrophy is seen. There is at least moderate right-sided neural foraminal narrowing can with a degree of compression upon the exiting right L2 nerve. No left-sided neural foraminal narrowing is seen. No central canal narrowing is seen. L3-L4: Moderate loss of disc height is seen. Loss of disc signal is seen. Moderate generalized disc bulge is seen. Moderate facet joint hypertrophy is seen. There is at least moderate right-sided neural foraminal narrowing, with a degree of compression upon the exiting right L3 nerve root. No left-sided neural foraminal narrowing is seen. Mild to moderate central canal narrowing is seen. L4-L5: Moderate loss of disc height is seen. Loss of disc signal is seen. Mild generalized disc bulge is seen. There is [id number] left-sided and mild right-sided facet hypertrophy. There is moderate left-sided and no right-sided narrowing. No significant central canal narrowing is seen. L5-S1: The disc height is well-preserved. Loss of disc signal is seen at this level. Mild generalized disc bulge is seen. There is a mild superimposed central disc protrusion. There is a focal annular fissure seen posteriorly. Moderate facet joint hypertrophy is seen. There is moderate left-sided and no right-sided neural foraminal narrowing. Mild central canal narrowing is seen. IMPRESSION: Levoconvex scoliosis and multiple levels of lumbar spine degenerative change can be seen. Dictated by: Alber Feng M.D. on 05/27/2023 at 16:53 Approved by: Alber Feng M.D. on 05/27/2023 at 16:57
== END ==
PROVIDERS: PCP Family Medicine; Referring Provider Family Medicine; Visit Provider Family Medicine
DX: M47.26 Other spondylosis with radiculopathy, lumbar region (principal); M47.27 Other spondylosis with radiculopathy, lumbosacral region; R32 Unspecified urinary incontinence; M41.9 Scoliosis, unspecified
CPT/HCPCS: 72148

== ENCOUNTER → 2023-08-09 08:10 | Outpatient (CLI) | payer MEDICARE, OTHER, SELFPAY ==
--- NOTE | 2023-08-09 | DI.MRI.S_ITS ---
PROCEDURE: MR ANKLE LT WO CON INDICATIONS: Peroneal tendinitis, left leg, contracture TECHNIQUE: Noncontrast sagittal T1 spin echo and T2 fast spin echo with fat saturation, axial proton density fast spin echo and T2 fast spin echo with fat saturation, coronal T1 spin echo and T2 fast spin echo with fat saturation through the ankle/hindfoot. COMPARISON: [facility], CR, XR FOOT 3 VIEWS WEIGHT BEARING BILATERAL, 07/07/2023, 7:10. FINDINGS: Image quality: Excellent. Bones and joints: No acute trabecular bone injury or fracture. No hindfoot coalitions. No osteochondral injuries of the talar dome. Medial structures: The deltoid ligament and the spring ligament complex are intact. Mild distal posterior tibialis tenosynovitis. The flexor digitorum longus and flexor hallucis longus tendons are intact. The posterior tibial neurovascular bundle appears normal within the tarsal tunnel, without extrinsic mass effect. Lateral structures: Remote prior grade 1-2 sprains of the anterior talofibular ligament and the calcaneofibular ligament. The posterior talofibular ligament is intact. The anterior and posterior tibiofibular ligaments are intact. The peroneus longus and brevis tendons demonstrate mild tendinosis and tenosynovitis but. The sinus tarsi demonstrates normal fatty signal. Anterior structures: The tibialis anterior, extensor hallucis longus, and extensor digitorum longus tendons appear intact. The dorsal talonavicular ligament appears intact. Posterior and plantar structures: Mild Achilles tendinosis. There is thickening of the proximal plantar fascia without surrounding soft tissue edema. A nonedematous plantar calcaneal enthesophyte is present. Mild fatty infiltration of the abductor digiti minimi muscle is suspicious for chronic denervation changes/Loera neuropathy. IMPRESSION: 1. Mild peroneus brevis and longus tendinosis and tenosynovitis. 2. Remote prior grade 1-2 sprains of the anterior talofibular ligament and the calcaneofibular ligament. 3. Mild distal posterior tibialis tenosynovitis. 4. Mild chronic proximal plantar fasciitis. 5. Fatty infiltration of the abductor digiti minimi muscle is suspicious for chronic denervation changes/Loera neuropathy. Approved by: Jassi Stewart M.D. on 08/09/2023 at 12:47
== END ==
PROVIDERS: PCP Family Medicine; Referring Provider Podiatrist; Visit Provider Podiatrist
DX: S93.492A Sprain of other ligament of left ankle, initial encounter (principal); S93.412A Sprain of calcaneofibular ligament of left ankle, initial encounter; M65.872 Other synovitis and tenosynovitis, left ankle and foot; M76.72 Peroneal tendinitis, left leg; M72.2 Plantar fascial fibromatosis; M24.573 Contracture, unspecified ankle; M79.671 Pain in right foot
CPT/HCPCS: 73721

== ENCOUNTER → 2024-04-24 08:52 | Outpatient (CLI) | payer MEDICARE, OTHER, SELFPAY ==
[2024-04-24 09:52] LABS: Add Manual Diff / Slide Review NO; Basophils Absolute Auto 100 /uL (0-100); Basophils Percent Auto 0.8 % (0-2); Eosinophils Absolute Auto 300 /uL (0-450); Eosinophils Percent Auto 4.6 % (2-4); Hematocrit 33.9 % (36-46); Hemoglobin 10.9 g/dL (12.0-16.0); Lymphocytes Absolute Auto 2800 /uL (1100-4500); Lymphocytes Percent Auto 38.6 % (25-40); Mean Corpuscular HGB Conc 32.2 % (30-36); Mean Corpuscular Hemoglobin 27.4 PG (26-34); Mean Corpuscular Volume 85.1 fL (80-100); Monocytes Absolute Auto 700 /uL (0-900); Monocytes Percent Auto 9.2 % (3-14); Neutrophils Absolute Auto 3400 /uL (1500-7000); Neutrophils Percent Auto 46.8 % (50-75); Platelet Count 327 X10^3/uL (150-400); Red Blood Cell Count 3.99 X10^6/uL (4.0-5.2); Red Cell Distribution Width 16.2 % (11.6-14.8); White Blood Cell Count 7.3 X10^3/uL (4.5-11.0)
[2024-04-24 10:06] LABS: Alanine Aminotransferase 25 IU/L (<35); Albumin 4.2 g/dL (3.5-5.0); Albumin Globulin Ratio 1.8 (1.0-2.8); Alkaline Phosphatase 77 U/L (38-126); Aspartate Aminotransferase 32 IU/L (14-36); BUN Creatinine Ratio 28.2 (6-22); Bilirubin Total 0.4 mg/dL (0.2-1.3); Blood Urea Nitrogen 22 mg/dL (7-17); Calcium 9.5 mg/dL (8.4-10.2); Carbon Dioxide 29 mmol/L (22-32); Chloride 106 mmol/L (98-107); Cholesterol 211 mg/dL (140-199); Estimated Glomerular Filt Rate > 60 mL/min (>60); Globulin 2.3 g/dL (1.7-4.1); Glucose 105 mg/dL (80-110); HDL Cholesterol 77 mg/dL (40-60); HEMOLYSIS < 15 (0-50); LDL Cholesterol Calculated 122 mg/dL (<100); Sodium 140 mmol/L (137-145); Total Protein 6.5 g/dL (6.3-8.2); Triglycerides 59 mg/dL (35-150)
[2024-04-24 10:36] LABS: TSH w/ Reflex to FT4 2.79 uIU/mL (0.47-4.68)
== END ==
PROVIDERS: PCP Family Medicine; Referring Provider Family Medicine; Visit Provider Family Medicine
DX: E78.5 Hyperlipidemia, unspecified (principal); E66.01 Morbid (severe) obesity due to excess calories; G81.94 Hemiplegia, unspecified affecting left nondominant side; E03.9 Hypothyroidism, unspecified
CPT/HCPCS: 36415; 80053; 80061; 84443; 85025

== ENCOUNTER → 2024-10-31 12:17 | Outpatient (CLI) | payer MEDICARE, OTHER, SELFPAY ==
--- NOTE | 2024-10-31 12:21 | DI.RAD.S_ITS ---
PROCEDURE: XR SHOULDER RT MIN 2V INDICATIONS: Fall onto right shoulder rule out fracture or dislocation TECHNIQUE: 3 views of the shoulder were acquired. COMPARISON: None. FINDINGS: Bones: No fractures or dislocations. No suspicious bony lesions. Visualized ribs appear intact. Moderate acromioclavicular joint and mild glenohumeral joint osteoarthritis. Soft tissues: No suspicious soft tissue calcifications. IMPRESSION: No acute bony abnormality. Dictated by: Silvia Tate MD, PhD on 10/31/2024 at 13:08 Approved by: Silvia Tate MD, PhD on 10/31/2024 at 13:09
== END ==
PROVIDERS: PCP Family Medicine; Referring Provider Chiropractor; Visit Provider Chiropractor
DX: S40.011A Contusion of right shoulder, initial encounter (principal); M19.011 Primary osteoarthritis, right shoulder; M25.511 Pain in right shoulder; W19.XXXA Unspecified fall, initial encounter
CPT/HCPCS: 73030

== ENCOUNTER → 2024-11-14 18:42 | Outpatient (CLI) | payer MEDICARE, OTHER, SELFPAY ==
--- NOTE | 2024-11-14 18:44 | DI.MRI.S_ITS ---
PROCEDURE: MR SHOULDER RT WO CON INDICATIONS: severely limited use of shoulder TECHNIQUE: Noncontrast oblique coronal T2 fast spin echo with fat saturation, oblique sagittal T1 spin echo and T2 fast spin echo with fat saturation, axial T1 spin echo and T2 fast spin echo with fat saturation through the shoulder. COMPARISON: None. FINDINGS: Image quality: Excellent. Rotator cuff: Full-thickness rupture involving distal supraspinatus and infra spinatus at their insertions on humeral head with up to 3.4 cm medial retraction of torn tendon fibers to the level of AC joint. Moderate grade intrasubstance partial- thickness tear involving distal subscapularis is seen. Sagittal images demonstrate moderate supraspinatus and infraspinatus muscle atrophy. Bones and bursae: Superior migration of humeral head in relation to glenoid is seen. Moderate acromioclavicular joint osteoarthritis. [id number] glenohumeral joint osteoarthritis. Type 2 acromion without os acromiale. Moderate joint effusion and subacromial subdeltoid bursal fluid, no loose bodies. Capsule and soft tissues: Signal abnormality and fraying involving superior anterior glenoid labrum at 12 to 2 o'clock position suggestive of superior anterior glenoid labral tear. Thickened proximal long head of biceps tendon with intrasubstance T2 hyperintense signal. IMPRESSION: 1. Full-thickness rupture of distal supraspinatus and infraspinatus at their insertions on humeral head with up to 3.4 cm medial retraction of torn tendon fibers to the level of acromioclavicular joint. Moderate grade intrasubstance partial-thickness tear involving distal subscapularis. Moderate supraspinatus and infraspinatus muscle atrophy. 2. Superior migration of humeral head in relation to glenoid. No acute fracture or dislocation. Moderate acromioclavicular joint osteoarthritis and [id number] glenohumeral joint osteoarthritis. Moderate joint effusion and subacromial subdeltoid bursal fluid, no loose bodies. 3. Suggestion of superior anterior glenoid labral tear at 12-2 position. 4. Low to moderate grade intrasubstance partial-thickness tear involving proximal long head of biceps. Dictated by: Arcenio Waddell M.D. on 11/15/2024 at 10:25 Approved by: Arcenio Waddell M.D. on 11/15/2024 at 10:32
== END ==
PROVIDERS: PCP Family Medicine; Referring Provider Family Medicine; Visit Provider Family Medicine
DX: M75.121 Complete rotator cuff tear or rupture of right shoulder, not specified as traumatic (principal); M62.511 Muscle wasting and atrophy, not elsewhere classified, right shoulder; M75.111 Incomplete rotator cuff tear or rupture of right shoulder, not specified as traumatic; M19.011 Primary osteoarthritis, right shoulder; M25.411 Effusion, right shoulder; S46.111A Strain of muscle, fascia and tendon of long head of biceps, right arm, initial encounter
CPT/HCPCS: 73221

== ENCOUNTER → 2025-01-26 15:29 | Outpatient (CLI) | payer MEDICARE, OTHER, SELFPAY ==
[2025-01-26 19:25] LABS: Clostridium Difficile Tox PCR Negative for C. diff (Negative)
== END ==
PROVIDERS: PCP Family Medicine; Referring Provider Family Medicine; Visit Provider Nurse Practitioner Family
DX: R19.7 Diarrhea, unspecified (principal)
CPT/HCPCS: 82270; 87205; 87329; 87493

== ENCOUNTER → 2025-04-10 09:53 | Outpatient (CLI) | payer MEDICARE, OTHER, SELFPAY ==
[2025-04-10 11:29] LABS: Add Manual Diff / Slide Review NO; Hematocrit 30.4 % (36-46); Hemoglobin 9.8 g/dL (12.0-16.0); Lymphocytes Absolute Auto 2000 /uL (1100-4500); Mean Corpuscular HGB Conc 32.3 % (30-36); Mean Corpuscular Hemoglobin 26.2 PG (26-34); Mean Corpuscular Volume 81.0 fL (80-100); Platelet Count 374 X10^3/uL (150-400)
[2025-04-10 12:11] LABS: Alanine Aminotransferase 25 IU/L (<35); Albumin 4.2 g/dL (3.5-5.0); Albumin Globulin Ratio 1.4 (1.0-2.8); Alkaline Phosphatase 77 U/L (38-126); Blood Urea Nitrogen 17 mg/dL (7-17); Calcium 9.8 mg/dL (8.4-10.2); Carbon Dioxide 29 mmol/L (22-32); Chloride 105 mmol/L (98-107); Cholesterol 204 mg/dL (140-199); Estimated Glomerular Filt Rate > 60 mL/min (>60); Globulin 2.9 g/dL (1.7-4.1); Glucose 94 mg/dL (70-99); HDL Cholesterol 93 mg/dL (40-60); HEMOLYSIS < 15 (0-50); Potassium 4.6 mmol/L (3.4-5.1); Sodium 139 mmol/L (137-145); Total Protein 7.1 g/dL (6.3-8.2); Triglycerides 81 mg/dL (35-150)
[2025-04-10 12:38] LABS: TSH w/ Reflex to FT4 1.39 uIU/mL (0.47-4.68)
== END ==
PROVIDERS: PCP Family Medicine; Referring Provider Family Medicine; Visit Provider Family Medicine
DX: E66.01 Morbid (severe) obesity due to excess calories (principal); E78.5 Hyperlipidemia, unspecified; E03.9 Hypothyroidism, unspecified
CPT/HCPCS: 36415; 80053; 80061; 84443; 85025